=== PATIENT | female | born 1980 | race Caucasian/White ===

== ENCOUNTER 2021-12-06 07:54 | Outpatient (REF) | payer OTHER, SELFPAY ==
[2021-12-06 08:26] LABS: Hematocrit 37.9 % (37.0-47.0); Hemoglobin 12.6 g/dl (12.0-16.0); Mean Corpuscular HGB Conc 33.2 g/dl (31.0-35.0); Mean Corpuscular Hemoglobin 29.4 pg (27.0-33.0); Mean Corpuscular Volume 88.3 fL (80.0-98.0); Mean Platelet Volume 8.9 fL (9.4-12.3); Platelet Count 282 X10*3/uL (160-400); Red Blood Count 4.29 X10*6/uL (4.20-5.50); Red Cell Distribution Width 12.3 % (11.0-16.0); White Blood Count 7.9 X10*3/uL (4.8-10.8)
[2021-12-06 08:44] LABS: Alanine Aminotransferase 12 U/L (0-31); Alkaline Phosphatase 58 U/L (39-117); Anion Gap 8 (12-20); Aspartate Amino Transferase 16 U/L (5-31); Bilirubin Total 0.5 mg/dL (0.0-1.0); Blood Urea Nitrogen 14 mg/dL (9-16); Calcium 8.9 mg/dL (8.4-10.2); Carbon Dioxide 26 mmol/L (22-29); Chloride 109 mmol/L (96-108); Cholesterol 147 mg/dL; Estimated Glomerular Filt Rate > 60; Glucose Fasting 103 mg/dL (60-99); HDL Cholesterol 60 mg/dL; LDL Cholesterol Calculated 74 mg/dl; Potassium 4.3 mmol/L (3.3-5.1); Sodium 139 mmol/L (135-145); Total Protein 6.9 g/dL (6.5-8.0); Triglycerides 66 mg/dL
[2021-12-06 09:03] LABS: TSH reflex Free T4 1.05 uIU/mL (0.32-4.0)
== END 2021-12-06 07:55 | disposition home or self-care (01) ==
LOC: HO.LAB 07:54
PROVIDERS: PCP Physician Assistant; Visit Provider Physician Assistant
DX: Z13.29 Encounter for screening for other suspected endocrine disorder (principal); Z13.220 Encounter for screening for lipoid disorders
CPT/HCPCS: 36415; 80053; 80061; 84443; 85027

== ENCOUNTER 2023-11-26 08:02 | Outpatient (AMB) | payer OTHER, SELFPAY ==
[2023-11-26 08:10] VITALS: BP 112/68; PULSE 70; O2SAT 98; BMI 25.3
--- NOTE | 2023-11-26 08:10 | A.OFFPC_ITS ---
Vital Signs 11/26/23 08:10 Height 5 ft 6 in Weight 157 lb BMI 25.3 BP 112/68 Blood Pressure Location Lt brachial Position Sitting Pulse 70 Pulse Source Pulse Oximeter Pulse Oximetry (%) 98 Oxygen Delivery Method Room Air Intake Visit Reasons: Annual exam Allergies No Known Allergies Allergy (Verified 11/26/23 08:22) Medication List - Last Reconciled 11/26/23 by Jesse Meza PA-C albuterol sulfate 90 mcg/actuation 1 inh inhalation QID 30 days cetirizine (Zyrtec) 10 mg PO DAILY PRN cholecalciferol (vitamin D3) 50 mcg PO DAILY lorazepam 0.5 mg PO BEDTIME 7 days montelukast (Singulair) 10 mg PO DAILY 90 days Tobacco use date assessed: 11/26/23 Dental Screening Dental Screen Date: 11/26/23 Did you have a dental visit in the last 12 months?: Yes Did you have a dental problem in the last 6 months where you did not have access to dental care?: No Was dental information given to patient?: Patient has dentist HPI Annual exam HPI Details Patient is a 43 y/o F here today annual physical visit. Patient's past medical history significant for generalized anxiety disorder, vitamin-D deficiency. .. Concerns--> does report suffering with allergy and asthma when exposed to allergens. Does use allergy medication, nasal spray and her albuterol inhaler with good effect. She reports generally her asthma is well controlled Vaccines: UTD with Tdap and COVID, Decline flu vaccine Mammograms: Done at [facility] in September of 2023, BI-RADS 2 Poultry Hanger: Does see a MOLD HOLDER at [facility]- Family history colon cancer:? Patient had a father from colon cancer at age 70 with a advanced stage colon cancer.? Father did not have screening at age 50.? Has gotten colonoscopy in 2021 which was normal per will repeat in 5 years due to family history.. ? 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 1. Little interest or pleasure in doing things: not at all 2. Feeling down, depressed, or hopeless: not at all 3. Trouble falling or staying asleep, or sleeping too much: not at all 4. Feeling tired or having little energy: not at all 5. Poor appetite or overeating: not at all 6. Feeling bad about yourself - or that you are a failure or have let yourself or your family down: not at all 7. Trouble concentrating on things, such as reading the newspaper or watching television: not at all 8. Moving or speaking so slowly that other people could have noticed. Or the opposite - being so fidgety or restless that you have been moving around a lot more than usual: not at all 9. Thoughts that you would be better off or of hurting yourself in some way: not at all Total score: 0 Depression Screening Interpretation: Negative Depression Screening Done: Yes 17679 - PHQ-9 Billing: Yes Source: Developed by Drs. Sanjiv Rodriguez, Becki Duarte, Scout Caballero and colleagues, with an educational yvonne from [employer]. Thrive Questionnaire Date Thrive assessed: 11/26/23 I am a: Patient What is your living situation today?: I have a steady place to live Within the past 12 months, did the food you bought not last and you didn't have the money to get more?: Never true Within the past 12 months, did you worry whether your food would run out before you got money to buy more?: Never true Do you have trouble paying for medicines?: No Do you have trouble getting transportation to medical appointments?: No Do you have trouble paying your heating and electricity bill?: No Do you have trouble taking care of your child, family member or friend?: No Do you have trouble with day-to-day activities such as bathing, preparing meals, shopping, managing finances, etc.?: No Are you currently unemployed and looking for a job?: No Are you interested in more education?: No Please select the resources that you would like help with: None Currently or been in a relationship where the following occur: no concerns reported THRIVE Score: 0 AUDIT C Alcohol Use Questionnaire (AUDIT-C) 1. How often do you have a drink containing alcohol?: Never Total Score: 0 ALTAGRACIA-7 AMB Questionnaire ALTAGRACIA-7 Date ALTAGRACIA - 7 assessed: 11/26/23 Feeling nervous, anxious, or on edge: 1 = Several days Not being able to stop or control worryin = Not at all Worrying too much about different things: 1 = Several days Trouble relaxin = Several days Being so restless that it is hard to sit still: 0 = Not at all Becoming easily annoyed or irritable: 1 = Several days Feeling afraid as if something awful might happen: 0 = Not at all Total ALTAGRACIA-7 score (0-4 normal; 5-9 mild; 10-14 moderate; 15-21 severe): 4 Source: Developed by Drs. Sanjiv Rodriguez, Becki Duarte, Scout Caballero and colleagues, with an educational yvonne from [employer]. ALTAGRACIA-7 Assessment Billing ALTAGRACIA-7 Assessment Tool: ALTAGRACIA-7 Assessment 12465 ACT Questionnaire In the past 4 weeks, how much of the time did your asthma keep you from getting as much done at work, school or at home?: None of the time During the past 4 weeks, how often have you had shortness of breath?: 1-2 times a week During the past 4 weeks, how often did your asthma symptoms wake you up at night or earlier than usual in the morning?: Not at all During the past 4 weeks, how often have you had to use your rescue inhaler or nebulizer medication?: Not at all How would you rate your asthma control during the past 4 weeks?: Well controlled ACT Interpretation: Negative Score: 23 Review of Systems Const Denies body aches, Denies chills, Denies excessive sweating, Denies fatigue, Denies fever(s) and Denies headache(s) Eyes Denies blurry vision ENT Denies dysphagia, Denies vertigo, Denies dizziness, Denies headache(s), Denies hearing loss, Reports nasal congestion and Denies tinnitus Card Denies chest pain, Denies chest pain with activity, Denies syncope, Denies irregular heart rhythm and Denies dyspnea Resp Denies chest congestion, Reports cough, Denies hemoptysis, Denies dyspnea and Denies wheezing GI Denies abdominal pain, Denies melena, Denies hematochezia, Denies coffee ground emesis, Reports constipation, Denies dysphagia, Denies diarrhea, Denies nausea and Denies vomiting Denies urinary frequency, Denies dysuria, Denies urinary hesitancy and Denies urinary urgency Musc Denies arthralgias, Denies limited range of motion, Denies muscle cramps and Denies muscle weakness Skin/Breast Denies rash and Denies skin ulcer Neuro Denies Abnormal speech present, Denies confusion, Denies vertigo, Denies dizziness, Denies syncope, Denies headache(s), Denies memory loss and Denies seizure-like activity Psych Denies anxiety, Denies confusion, Denies depression, Denies memory loss, Denies panic attacks and Denies paranoia Endo Denies excessive sweating, Denies fatigue, Denies flushing, Denies polydipsia and Denies polyuria Aller/Immun Denies wheezing Physical exam (Primary Care) Vital Signs: Last Vital Signs Pulse 70 11/26/23 08:10 BP 112/68 11/26/23 08:10 Pulse Ox 98 11/26/23 08:10 Oxygen Delivery Method Room Air 11/26/23 08:10 BMI result Body Mass Index 25.3 Tobacco/Smoking Status: Tobacco use Status Tobacco use date assessed 11/26/23 11/26/23 08:21 Patient Tobacco Use Status Never used Tobacco 11/26/23 08:21 Tobacco use type Cigarette 11/26/23 08:21 e-Cigarette/Vaping Use Never Used 11/26/23 08:21 PHQ-9: PHQ-9 Score PHQ-9: Total score 0 11/26/23 08:23 Depression Screening Interpretation: Negative Thrive Assessment: Date of Thrive Assessment Date Thrive assessed 11/26/23 11/26/23 08:21 Currently or been in a relationship where the following occur: no concerns reported Const General: cooperative, comfortable, no acute distress, alert and awake; No confusion Orientation/consciousness: oriented to person, oriented to place, patient oriented x3 and No confusion HENMT Head: Yes normocephalic Ears: external ears normal and TM's normal bilaterally Face and sinus: No sinus tenderness Mouth: Normal oral and palatal mucosa present and tongue normal Teeth and gingiva: dentition normal and gingiva normal Throat: Yes posterior oropharynx normal, Yes tonsils normal and Yes uvula midline Eyes Conjunctivae: conjunctivae normal Sclerae: sclerae normal Pupils: Equal, round and reactive pupils present EOM: EOMs intact bilaterally Direct Ophthalmoscopy: No no photophobia Neck Neck: Yes no lymphadenopathy, No tender and Yes no JVD Thyroid: Thyroid normal Carotids: no bruits Chest Chest palpation & inspection: no tenderness Resp Effort & Inspection: normal respiratory effort, no audible wheezes, not labored and no stridor Auscultation: no crackles, no rales, no rhonchi and no wheezes Cardio Jugular venous distension: no JVD Rate: regular rate, not bradycardic and not tachycardic Rhythm: regular rhythm Bruits: no carotid bruits Peripheral pulses: Peripheral pulses 2+ throughout GI Inspection: Yes normal to inspection, No abdominal wall ecchymosis and No visible herniation Palpation (GI): Soft to palpation, nontender, no guarding, not rigid and No hepatosplenomegaly present Auscultation: normoactive bowel sounds General: Yes no CVA tenderness Back/Spine/Pelvis Back: no CVA tenderness and No back tenderness Cervical Spine: cervical ROM normal Thoracic/Lumbar Spine: thoracic and lumbar spine normal to inspection, straight leg raise negative bilaterally, No thoraco-lumbar ROM limited and No lumbar spinal tenderness Skin Lesions: no lesions Rashes: no rashes Wounds: no wounds Neuro General: oriented to person, oriented to place, patient oriented x3, CN's II-XI intact bilaterally and No confusion Cranial nerves: Yes Equal, round and reactive pupils present and Yes Normal accommodation reflex present Cognition (Neuro): normal cognition Speech: No Abnormal speech present Gait exam (Neuro): Normal gait present Motor exam (neuro): 5/5 motor strength present throughout Extrem Right upper extremity: full ROM; no cyanosis Left upper extremity: full ROM; no cyanosis Right lower extremity: no edema Left lower extremity: no edema Psych Appearance: grossly normal Mental Status: mental status grossly normal Affect: normal affect Attitude: cooperative Thought process: Normal thought process present Assessment and Plan Assessment & Plan (1) Annual physical exam: Code(s): Z00.00 - Encounter for general adult medical examination without abnormal findings (2) ALTAGRACIA (generalized anxiety disorder): Code(s): F41.1 - Generalized anxiety disorder Plan: Patient's PHQ-9 score positive for anxiety which has been existing condition for her. Patient reports her anxiety has been well controlled. Only using lorazepam on a very limited emergency basis only. (3) Constipation: Code(s): K59.00 - Constipation, unspecified Qualifiers: Constipation type: chronic idiopathic constipation Qualified Code(s): K59.04 - Chronic idiopathic constipation Plan: Patient reports over last few days having an issue with constipation. She attributes this to poor diet. Will supply patient was sent to use for a p.r.n. basis. Advised on increasing fluids and fiber in her diet. (4) Asthma: Code(s): J45.909 - Unspecified asthma, uncomplicated Qualifiers: Asthma complication type: uncomplicated Asthma persistence: intermittent Asthma severity: mild Qualified Code(s): J45.20 - Mild intermittent asthma, uncomplicated Plan: Patient reports asthma is fairly well controlled with p.r.n. use of her albuterol inhaler. She does report some exacerbations her asthma due to allergies. Otherwise denies any nighttime awakenings with asthma symptoms. Orders: Orders Comprehensive [place]. Panel Fast Today Z13.1 - Encounter for screening for diabetes mellitus Vitamin D 25-OH Total Today E56.9 - Vitamin deficiency, unspecified Medications: New sennosides (senna) 17.2 mg (2 x 8.6 mg) PO BEDTIME PRN 14 tabs 0RF constipation 7 days K59.04 - Chronic idiopathic constipation Refilled lorazepam 0.5 mg PO BEDTIME 7 tabs 0RF anxiety 7 days F41.1 - Generalized anxiety disorder Coding Level of Care Code Est Pt Prev Care 40-64y(62574) Diagnoses Annual physical exam Z00.00 ALTAGRACIA (generalized anxiety disorder) F41.1 Chronic idiopathic constipation K59.04 Constipation type: chronic idiopathic constipation Mild intermittent asthma without complication J45.20 Asthma complication type: uncomplicated Asthma persistence: intermittent Asthma severity: mild Additional Codes ALTAGRACIA-7 Assessment Billing - ALTAGRACIA-7 Assessment Tool: ALTAGRACIA-7 Assessment 00989 ([id number])
== END 2023-11-26 08:44 | disposition home or self-care (01) ==
PROVIDERS: Visit Provider Physician Assistant
DX: Z00.00 Encounter for general adult medical examination without abnormal findings (principal); J45.20 Mild intermittent asthma, uncomplicated; F41.1 Generalized anxiety disorder; K59.04 Chronic idiopathic constipation
CPT/HCPCS: 99396

== ENCOUNTER 2025-03-19 13:54 | Outpatient (REF) | payer OTHER, SELFPAY ==
[2025-03-20 10:06] LABS: Bacterial Vaginosis PCR NEGATIVE (Negative); Candida Group PCR NOT DETECTED (Not Detect); Candida glab krusei PCR NOT DETECTED (Not Detect); Trichomonas vaginalis PCR NOT DETECTED (Not Detect)
== END 2025-03-19 13:55 | disposition home or self-care (01) ==
LOC: HO.LNP 13:54
PROVIDERS: PCP Physician Assistant
DX: N89.8 Other specified noninflammatory disorders of vagina (principal); L02.91 Cutaneous abscess, unspecified
CPT/HCPCS: 81515; 96127

== ENCOUNTER 2025-03-19 13:54 | Outpatient (AMB) | payer OTHER, SELFPAY ==
[2025-03-19 13:57] VITALS: BP 122/60; PULSE 76; O2SAT 98
--- NOTE | 2025-03-19 13:57 | MHC.PC.OV ---
Vital Signs 03/19/25 13:57 Weight 155 lb 6 oz BP 122/60 Blood Pressure Location Lt brachial Position Sitting Pulse 76 Pulse Source Pulse Oximeter Pulse Oximetry (%) 98 Oxygen Delivery Method Room Air Intake Visit Reasons: Boil or ingrown hair to groin area Clinical Research Associate Required: No Accompanied by: Self / Same As Patient Allergies No Known Allergies Allergy (Verified 03/19/25 14:11) Medication List - Last Reconciled 03/19/25 by Brittanie Eckert PA-C albuterol sulfate 90 mcg/actuation 1 inh inhalation QID 30 days cetirizine (Zyrtec) 10 mg PO DAILY PRN cholecalciferol (vitamin D3) 50 mcg PO DAILY lorazepam 0.5 mg PO BEDTIME 7 days sennosides (senna) 17.2 mg (2 x 8.6 mg) PO BEDTIME PRN 7 days sumatriptan succinate take 1 tab at onset of headache; if no relief may repeat 1 tab after at least 2 hrs; max = 4 tabs/24 hr PO 30 days Tobacco use date assessed: 11/26/23 Dental Screening Dental Screen Date: 03/19/25 Did you have a dental visit in the last 12 months?: Yes Did you have a dental problem in the last 6 months where you did not have access to dental care?: No Was dental information given to patient?: Patient has dentist HPI Boil or ingrown hair to groin area HPI Details 45-year-old female with past medical history of generalized anxiety disorder, asthma last seen 11/2023 by JUAN DANIEL coming in for acute problem. Presenting with concerns of a lesion in the genital area and abnormal vaginal discharge. The lesion was noticed approximately a week and a half ago, initially tender and painful, but the pain has resolved. The lesion has decreased in size but remains present. Warm compresses and Tylenol were used for pain management. The patient reports increased discharge, attributed to changes in her work environment and increased physical activity. She uses pantyliners due to the discharge. The patient denies any burning or pain with urination and reports no foul smell associated with the discharge. 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 1. Little interest or pleasure in doing things: not at all 2. Feeling down, depressed, or hopeless: not at all 3. Trouble falling or staying asleep, or sleeping too much: not at all 4. Feeling tired or having little energy: not at all 5. Poor appetite or overeating: not at all 6. Feeling bad about yourself - or that you are a failure or have let yourself or your family down: not at all 7. Trouble concentrating on things, such as reading the newspaper or watching television: not at all 8. Moving or speaking so slowly that other people could have noticed. Or the opposite - being so fidgety or restless that you have been moving around a lot more than usual: not at all 9. Thoughts that you would be better off or of hurting yourself in some way: not at all Total score: 0 28317 - PHQ-9 Billing: Yes Source: Developed by Drs. Sanjiv Rodriguez, Becki Duarte, Scout Caballero and colleagues, with an educational yvonne from [employer]. Thrive Questionnaire Date Thrive assessed: 11/24/24 I am a: Patient What is your living situation today?: I have a steady place to live Within the past 12 months, did the food you bought not last and you didn't have the money to get more?: Never true Within the past 12 months, did you worry whether your food would run out before you got money to buy more?: Never true Do you have trouble paying for medicines?: Yes Do you have trouble getting transportation to medical appointments?: No Do you have trouble paying your heating and electricity bill?: No Do you have trouble taking care of your child, family member or friend?: No Do you have trouble with day-to-day activities such as bathing, preparing meals, shopping, managing finances, etc.?: No Are you currently unemployed and looking for a job?: No Are you interested in more education?: Yes Please select the resources that you would like help with: None Currently or been in a relationship where the following occur: No concerns reported THRIVE Score: 0 AUDIT C Alcohol Use Questionnaire (AUDIT-C) 1. How often do you have a drink containing alcohol?: Never Total Score: 0 ALTAGRACIA-7 AMB Questionnaire ALTAGRACIA-7 Date ALTAGRACIA - 7 assessed: 11/26/23 Feeling nervous, anxious, or on edge: 1 = Several days Not being able to stop or control worryin = Not at all Worrying too much about different things: 1 = Several days Trouble relaxin = Several days Being so restless that it is hard to sit still: 0 = Not at all Becoming easily annoyed or irritable: 1 = Several days Feeling afraid as if something awful might happen: 0 = Not at all Total ALTAGRACIA-7 score (0-4 normal; 5-9 mild; 10-14 moderate; 15-21 severe): 4 Source: Developed by Drs. Sanjiv Rodriguez, Becki Duarte, Scout Caballero and colleagues, with an educational yvonne from [employer]. Review of Systems Const Denies body aches, Denies chills and Denies fever(s) Card Reports no additional complaints Resp Reports no additional complaints Details: vaginal discharge and vaginal bump Reports as per HPI Skin/Breast Reports system reviewed and no additional complaints, except as documented Physical exam (Primary Care) Vital Signs: Last Vital Signs Pulse 76 03/19/25 13:57 BP 122/60 03/19/25 13:57 Pulse Ox 98 03/19/25 13:57 Oxygen Delivery Method Room Air 03/19/25 13:57 Tobacco/Smoking Status: Tobacco use Status Tobacco use date assessed 11/26/23 03/19/25 13:57 Patient Tobacco Use Status Never used Tobacco 03/19/25 13:57 Tobacco use type Cigarette 03/19/25 13:57 e-Cigarette/Vaping Use Never Used 03/19/25 13:57 PHQ-9: PHQ-9 Score PHQ-9: Total score 0 03/19/25 14:10 Thrive Assessment: Date of Thrive Assessment Date Thrive assessed 11/24/24 03/19/25 13:57 Currently or been in a relationship where the following occur: No concerns reported Const General: cooperative, healthy appearing, comfortable and no acute distress Orientation/consciousness: patient oriented x3 HENMT Head: Yes normocephalic Ears: hearing grossly normal bilaterally General nose exam: Normal external nose present Eyes General: appearance normal, both eyes and all related structures Neck Neck: Yes full ROM and Yes no lymphadenopathy Resp Effort & Inspection: normal respiratory effort Cardio Rate: regular rate Other: FRANCISCA Lopes was present as a deep tissue massage therapist for the duration of the exam Female genitals images:  1. nontender, immobile bump with smooth edges without surrounding erythema or fluctuance Neuro General: patient oriented x3 Gait exam (Neuro): Normal gait present Extrem General: Yes normal to inspection, Yes full ROM and No edema Psych Affect: normal affect Attitude: cooperative Insight: Good insight present (Psych) Judgement: Good judgement present (Psych) Coding Level of Care Code Est Pt Level 4 (86007) Diagnoses Vaginal discharge N89.8 Abscess L02.91 Additional Codes PHQ-9 - 25759 - PHQ-9 Billing: Yes ([id number]) Assessment & Plan Assessment & Plan (1) Vaginal discharge: Code(s): N89.8 - Other specified noninflammatory disorders of vagina Category: Medical Plan: A vaginal swab will be conducted to test for bacterial vaginosis, yeast infection, and Trichomonas. The patient will be instructed on how to perform the swab herself. Results will guide further treatment if necessary. (2) Abscess: Code(s): L02.91 - Cutaneous abscess, unspecified Category: Medical Plan: Patient having nontender bump on the internal aspect of labia majora which has been present for about 1.5 weeks. Given the history concern for possible abscess. The plan includes the use of warm compresses to encourage drainage and the prescription of antibiotics to address any potential infection. If the cyst does not resolve or recurs, referral to gynecology for further management will be considered. Plan This note was constructed using voice recognition software. While every effort has been made to ensure accuracy and furniture fabricator, still areas may have been included sometimes these areas may affect the content or meeting of the given symptoms. Total time spent caring for the patient today was 20 minutes. This includes time spent before the visit reviewing the chart, time spent during the visit, and time spent after the visit and documentation. Patient was informed and verbally consented to the use of an ambient scribe for clinic note documentation during this visit. Orders: Orders Bacterial Vaginosis Panel Today N89.8 - Other specified noninflammatory disorders of vagina Referrals TRANSPORTATION LEAD Referral Z12.4 - Encounter for screening for malignant neoplasm of cervix Medications: New doxycycline hyclate 100 mg PO BID 14 tabs 0RF
== END 2025-03-19 14:48 | disposition home or self-care (01) ==
LOC: HO.HMCH 13:54
PROVIDERS: PCP Physician Assistant
DX: N89.8 Other specified noninflammatory disorders of vagina (principal); L02.91 Cutaneous abscess, unspecified

== ENCOUNTER 2025-04-07 11:27 | Outpatient (AMB) | payer OTHER, SELFPAY ==
--- NOTE | 2025-04-07 11:39 | A.OFFPC_ITS ---
Vital Signs 04/07/25 11:40 Height 5 ft 6 in Weight 154 lb 6 oz BMI 24.9 BP 132/74 Blood Pressure Location Rt brachial Position Sitting Pulse 95 Pulse Source Pulse Oximeter Temp 97.3 F Temp Source Temporal Artery Scan Pulse Oximetry (%) 97 Oxygen Delivery Method Room Air Intake Visit Reasons: annual exam Intake Note: Patient is here today for a physical. Quantitative Analyst Required: No Hvac Technician Residential: Not Required per policy Accompanied by: Self / Same As Patient Allergies No Known Allergies Allergy (Verified 04/07/25 12:06) Medication List - Last Reconciled 04/07/25 by Jesse Meza PA-C albuterol sulfate 90 mcg/actuation 1 inh inhalation QID 30 days cetirizine (Zyrtec) 10 mg PO DAILY PRN cholecalciferol (vitamin D3) 50 mcg PO DAILY lorazepam 0.5 mg PO BEDTIME 7 days sennosides (senna) 17.2 mg (2 x 8.6 mg) PO BEDTIME PRN 7 days sumatriptan succinate take 1 tab at onset of headache; if no relief may repeat 1 tab after at least 2 hrs; max = 4 tabs/24 hr PO 30 days Tobacco use date assessed: 04/07/25 Dental Screening Dental Screen Date: 03/19/25 HPI annual exam HPI Details Patient is a 45 y/o F here today annual physical visit. Patient's past medical history significant for generalized anxiety disorder, vitamin-D deficiency. .. Concerns--> he came down viral illness. She is concerned about her hair thinning that she has noticed over the last few years. 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 Patient had a father from colon cancer at age 70 with a advanced stage colon cancer.? Father did not have screening at age 50.? Has gotten colonoscopy in 2021 which was normal per will repeat in 5 years due to family history.. ? 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- [employer] Current occupational exposures/hazards: No Cognitive needs: No Hearing needs: No Vision needs: Yes Questionnaire Thrive Questionnaire Date Thrive assessed: 11/24/24 I am a: Patient What is your living situation today?: I have a steady place to live Within the past 12 months, did the food you bought not last and you didn't have the money to get more?: Never true Within the past 12 months, did you worry whether your food would run out before you got money to buy more?: Never true Do you have trouble paying for medicines?: Yes Do you have trouble getting transportation to medical appointments?: No Do you have trouble paying your heating and electricity bill?: No Do you have trouble taking care of your child, family member or friend?: No Do you have trouble with day-to-day activities such as bathing, preparing meals, shopping, managing finances, etc.?: No Are you currently unemployed and looking for a job?: No Are you interested in more education?: Yes Please select the resources that you would like help with: None Currently or been in a relationship where the following occur: No concerns reported THRIVE Score: 0 ALTAGRACIA-7 AMB Questionnaire ALTAGRACIA-7 Date ALTAGRACIA - 7 assessed: 03/19/25 Source: Developed by Drs. Sanjiv Rodriguez, Becki Duarte, Scout Caballero and colleagues, with an educational yvonne from [employer]. Review of Systems Const Denies body aches, Denies chills, Denies excessive sweating, Denies fatigue, Denies fever(s) and Denies headache(s) Eyes Denies blurry vision ENT Denies dysphagia, Denies vertigo, Denies dizziness, Denies headache(s), Denies hearing loss and Denies tinnitus Card Denies chest pain, Denies chest pain with activity, Denies syncope, Denies irregular heart rhythm and Denies dyspnea Resp Denies chest congestion, Denies cough, Denies hemoptysis, Denies dyspnea and Denies wheezing GI Denies abdominal pain, Denies melena, Denies hematochezia, Denies coffee ground emesis, Denies dysphagia, Denies diarrhea, Denies nausea and Denies vomiting Denies urinary frequency, Denies dysuria, Denies urinary hesitancy and Denies urinary urgency Musc Denies arthralgias, Denies limited range of motion, Denies muscle cramps and Denies muscle weakness Skin/Breast Denies rash and Denies skin ulcer Neuro Denies Abnormal speech present, Denies confusion, Denies vertigo, Denies dizziness, Denies syncope, Denies headache(s), Denies memory loss and Denies seizure-like activity Psych Denies anxiety, Denies confusion, Denies depression, Denies memory loss, Denies panic attacks and Denies paranoia Endo Denies excessive sweating, Denies fatigue, Denies flushing, Denies polydipsia and Denies polyuria Aller/Immun Denies wheezing Physical exam (Primary Care) Vital Signs: Last Vital Signs Temp 97.3 F 04/07/25 11:40 Pulse 95 04/07/25 11:40 BP 132/74 04/07/25 11:40 Pulse Ox 97 04/07/25 11:40 Oxygen Delivery Method Room Air 04/07/25 11:40 BMI result Body Mass Index 24.9 Tobacco/Smoking Status: Tobacco use Status Tobacco use date assessed 04/07/25 04/07/25 11:41 Patient Tobacco Use Status Never used Tobacco 04/07/25 11:41 Tobacco use type Cigarette 04/07/25 11:41 e-Cigarette/Vaping Use Never Used 04/07/25 11:41 Thrive Assessment: Date of Thrive Assessment Date Thrive assessed 11/24/24 04/07/25 11:41 Currently or been in a relationship where the following occur: No concerns reported Const General: cooperative, comfortable, no acute distress, alert and awake; No confusion Orientation/consciousness: oriented to person, oriented to place, patient oriented x3 and No confusion HENMT Head: Yes normocephalic Ears: external ears normal and TM's normal bilaterally Face and sinus: No sinus tenderness Mouth: Normal oral and palatal mucosa present and tongue normal Teeth and gingiva: dentition normal and gingiva normal Throat: Yes posterior oropharynx normal, Yes tonsils normal and Yes uvula midline Eyes Conjunctivae: conjunctivae normal Sclerae: sclerae normal Pupils: Equal, round and reactive pupils present EOM: EOMs intact bilaterally Direct Ophthalmoscopy: No no photophobia Neck Neck: Yes no lymphadenopathy, No tender and Yes no JVD Thyroid: Thyroid normal Carotids: no bruits Chest Chest palpation & inspection: no tenderness Resp Effort & Inspection: normal respiratory effort, no audible wheezes, not labored and no stridor Auscultation: no crackles, no rales, no rhonchi and no wheezes Cardio Jugular venous distension: no JVD Rate: regular rate, not bradycardic and not tachycardic Rhythm: regular rhythm Bruits: no carotid bruits Peripheral pulses: Peripheral pulses 2+ throughout GI Inspection: Yes normal to inspection, No abdominal wall ecchymosis and No visible herniation Palpation (GI): Soft to palpation, nontender, no guarding, not rigid and No hepatosplenomegaly present Auscultation: normoactive bowel sounds General: Yes no CVA tenderness Back/Spine/Pelvis Back: no CVA tenderness and No back tenderness Cervical Spine: cervical ROM normal Thoracic/Lumbar Spine: thoracic and lumbar spine normal to inspection, straight leg raise negative bilaterally, No thoraco-lumbar ROM limited and No lumbar spinal tenderness Skin Lesions: no lesions Rashes: no rashes Wounds: no wounds Neuro General: oriented to person, oriented to place, patient oriented x3, CN's II-XI intact bilaterally and No confusion Cranial nerves: Yes Equal, round and reactive pupils present and Yes Normal accommodation reflex present Cognition (Neuro): normal cognition Speech: No Abnormal speech present Gait exam (Neuro): Normal gait present Motor exam (neuro): 5/5 motor strength present throughout Extrem Right upper extremity: full ROM; no cyanosis Left upper extremity: full ROM; no cyanosis Right lower extremity: no edema Left lower extremity: no edema Psych Appearance: grossly normal Mental Status: mental status grossly normal Affect: normal affect Attitude: cooperative Thought process: Normal thought process present Coding Level of Care Code Est Pt Prev Care 40-64y(18378) Diagnoses Annual physical exam Z00.00 Hair thinning L65.9 Screening for diabetes mellitus (DM) Z13.1 Assessment & Plan Assessment & Plan (1) Annual physical exam: Code(s): Z00.00 - Encounter for general adult medical examination without abnormal findings Category: Medical Plan: As per [facility] (2) Hair thinning: Code(s): L65.9 - Nonscarring hair loss, unspecified Category: Medical Plan: Concerned about hair thinning over the last few years, will check vitamin levels. She denies any overwhelming stress. (3) Screening for diabetes mellitus (DM): Code(s): Z13.1 - Encounter for screening for diabetes mellitus Category: Medical Plan: As per HPI Orders: Orders Complete Blood Count no Diff Today Z13.1 - Encounter for screening for diabetes mellitus Comprehensive [place]. Panel Fast Today Z13.1 - Encounter for screening for diabetes mellitus Vitamin E Today E56.9 - Vitamin deficiency, unspecified TSH reflex Free T4 Today L65.9 - Nonscarring hair loss, unspecified Vitamin B12 and Folate Today E53.8 - Deficiency of other specified B group vitamins, E56.9 - Vitamin deficiency, unspecified Vitamin D 25-OH Total Today E56.9 - Vitamin deficiency, unspecified Vitamin A Today E56.9 - Vitamin deficiency, unspecified
[2025-04-07 11:40] VITALS: BP 132/74; PULSE 95; TEMP 36.3; O2SAT 97; BMI 24.9
== END 2025-04-07 12:27 | disposition home or self-care (01) ==
LOC: HO.HMCH 11:28
PROVIDERS: PCP Physician Assistant; Visit Provider Physician Assistant
DX: Z00.00 Encounter for general adult medical examination without abnormal findings (principal); L65.9 Nonscarring hair loss, unspecified; Z13.1 Encounter for screening for diabetes mellitus

== ENCOUNTER 2025-05-25 07:15 | Outpatient (REF) | payer OTHER, SELFPAY ==
[2025-05-25 08:00] LABS: Hematocrit 39.0 % (37.0-47.0); Hemoglobin 13.2 g/dl (12.0-16.0); Mean Corpuscular HGB Conc 33.8 g/dl (31.0-35.0); Mean Corpuscular Hemoglobin 29.5 pg (27.0-33.0); Mean Corpuscular Volume 87.2 fL (80.0-98.0); NRBC Abs Auto 0.000 X10*3/uL (0.0-0.012); NRBC Pct Auto 0.0 /100WBC (0.0-0.2); Platelet Count 322 X10*3/uL (160-400); Red Blood Count 4.47 X10*6/uL (4.20-5.50); White Blood Count 7.9 X10*3/uL (4.8-10.8)
[2025-05-25 08:25] LABS: Alanine Aminotransferase 14 U/L (0-31); Albumin Level 4.3 g/dL (3.5-5.0); Alkaline Phosphatase 58 U/L (39-117); Anion Gap 10 (12-20); Aspartate Amino Transferase 20 U/L (5-31); Blood Urea Nitrogen 13 mg/dL (9-16); Calcium 8.9 mg/dL (8.4-10.2); Carbon Dioxide 23 mmol/L (22-29); Chloride 109 mmol/L (96-108); Estimated Glomerular Filt Rate > 60; Potassium 4.0 mmol/L (3.3-5.1); Sodium 138 mmol/L (135-145); Total Protein 7.1 g/dL (6.5-8.0)
[2025-05-25 08:53] LABS: Folate 11.1 ng/mL (> or = 4.0); Vitamin B12 465 pg/mL (200-900)
== END 2025-05-25 07:16 | disposition home or self-care (01) ==
LOC: HO.LAB 07:15
PROVIDERS: PCP Physician Assistant; Visit Provider Physician Assistant
DX: Z13.1 Encounter for screening for diabetes mellitus (principal); E53.8 Deficiency of other specified B group vitamins; E56.9 Vitamin deficiency, unspecified; L65.9 Nonscarring hair loss, unspecified
CPT/HCPCS: 36415; 80053; 82306; 82607; 82746; 84443; 84446; 84590; 85027